=== PATIENT | female | born 1995 | race Two or more races ===

== ENCOUNTER 2018-12-01 15:59 | Emergency (ER) | payer OTHER ==
[2018-12-01 16:14] VITALS: BP 152/89; PULSE 75; TEMP 98.3; BMI 30.7
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
[2018-12-01] MEDS ORDERED: IBUPROFEN 400 MG TABLET (FP) PO ONE ×2 (17:29→17:31)
[2018-12-01] MEDS ORDERED: LIDOCAINE 5% TOPICAL PATCH TP ONE (17:31)
[2018-12-01] MEDS ORDERED: LIDOCAINE 5% TOPICAL PATCH ONE (17:32)
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
[2018-12-01] MEDS ORDERED: LIDOCAINE PATCH REMOVAL MC SCH (22:00)
== END 2018-12-01 17:39 | disposition home or self-care (01) ==
LOC: JERFT 15:59
DX: S13.4XXA Sprain of ligaments of cervical spine, initial encounter (principal); V43.52XA Car driver injured in collision with other type car in traffic accident, initial encounter; Y93.89 Activity, other specified; Y92.410 Unspecified street and highway as the place of occurrence of the external cause; G93.2 Benign intracranial hypertension; F17.210 Nicotine dependence, cigarettes, uncomplicated
CPT/HCPCS: 84703; 99281-25

== ENCOUNTER 2019-12-25 05:57 | Day surgery (SDC) | payer OTHER ==
[2019-12-25] MEDS ORDERED: IRON SUCROSE INJECTION 200 MG in SODIUM CHLORIDE 100 ML IVPB ONE (10:00)
[2019-12-25 14:32] VITALS: TEMP 97.5
[2019-12-25 14:33] VITALS: BP 131/87; PULSE 81
== END 2019-12-25 11:15 | disposition home or self-care (01) ==
LOC: JONCNONCHE 05:57 → J7W 09:34 → JONCNONCHE 11:15
PROVIDERS: ATTEND Internal Medicine Hematology & Oncology
PROC: 3E033GC Introduction of Other Therapeutic Substance into Peripheral Vein, Percutaneous Approach (ICD-10-PCS; principal; 2019-12-25)
DX: D50.9 Iron deficiency anemia, unspecified (principal)
CPT/HCPCS: 96365; J1756

== ENCOUNTER 2020-01-08 07:04 | Day surgery (SDC) | payer OTHER ==
[2020-01-08] MEDS ORDERED: IRON SUCROSE INJECTION 200 MG in SODIUM CHLORIDE 100 ML IVPB ONE (11:00)
[2020-01-08 15:48] VITALS: BP 130/85; PULSE 72; TEMP 98.6
== END 2020-01-08 12:15 | disposition home or self-care (01) ==
LOC: JONCNONCHE 07:04 → J7W 10:37 → JONCNONCHE 12:15
PROVIDERS: ATTEND Nurse Practitioner Family
DX: D50.9 Iron deficiency anemia, unspecified (principal)
CPT/HCPCS: 96365; J1756

== ENCOUNTER 2020-01-21 13:12 | Emergency (ER) | payer OTHER ==
[2020-01-21 13:19] VITALS: BP 140/95; PULSE 92; TEMP 98.3; BMI 30.7
--- NOTE | 2020-01-21 14:14 | PDOC ---
History of Present Illness - General Chief Complaint: Allergic Reaction Stated Complaint: ALLGERIC REACTION Time Seen by Provider: 01/21/20 13:39 History Source: Patient Exam Limitations: No Limitations - History of Present Illness Initial Comments: 01/21/20 14:46 HISTORY OF PRESENT ILLNESS: 24-year-old woman recently diagnosed with lupus and started on Plaquenil who presents emergency department for evaluation of rash to face, arms, hands and feet. Patient was concerned that she has oral pain which started this morning upon waking up. She denies any shortness of breath, difficulty swallowing or audible wheezing. Patient reports she was seen by her primary doctor who started on a Medrol Dosepak and has been given her Benadryl for the rash. Patient had called her primary doctor today to tell her about the pain in her mouth and was referred to come to the emergency department for evaluation of angioedema. Patient reports she self DC'd her Plaquenil after symptoms had started for questionable allergic reaction. No recent travel or sick contacts. PAST MEDICAL HISTORY: Denies past medical history SURGICAL HISTORY: Denies ALLERGIES: No known drug allergies REVIEW OF SYSTEMS General/Constitutional: Denies fever or chills. Denies weakness, weight change. HEENT: See HPI Cardiovascular: Denies chest pain or shortness of breath. Respiratory: Denies cough, wheezing, or hemoptysis. Gastrointestinal: Denies nausea, vomiting, diarrhea or constipation. Denies rectal bleeding. Genitourinary: Denies dysuria, frequency, or change in urination. Musculoskeletal: Denies joint or muscle swelling or pain. Denies neck or back pain. Skin and breasts: See HPI Neurologic: Denies headache, vertigo, loss of consciousness, or loss of sensation. Psychiatric: Denies depression or anxiety. Endocrine: Denies increased thirst. Denies abnormal weight change. Hematologic/Lymphatic: Denies anemia, easy bleeding, or history of blood clots. Allergic/Immunologic: Denies hives or skin allergy. Denies latex allergy. PHYSICAL EXAM General Appearance: Well-appearing, appropriately dressed. No apparent distress, no intoxication. HEENT: EOMI, PERRLA, normal ENT inspection, normal voice, TMs normal, pharynx normal. No conjunctival pallor. No photophobia, scleral icterus. Butterfly rash present. Neck: Supple. Trachea midline. No tenderness, rigidity, carotid bruit, stridor, lymphadenopathy, or thyromegaly. Respiratory/Chest: Lungs CTAB. No shortness of breath, chest tenderness, respiratory distress, accessory muscle use. No crackles, rales, rhonchi, stridor, wheezing, dullness Cardiovascular: RRR. S1, S2. No JVD, murmur, bradycardia, tachycardia. Vascular Pulses: Dorsalis-Pedis (R): 2+, Dorsalis-Pedis (L): 2+ Musculoskeletal/Extremities: Normal inspection. FROM of all extremities, normal capillary refill. Pelvis Stable. No CVA tenderness. No tenderness to extremities, pedal edema, swelling, erythema or deformity. Integumentary: Flat maculopapular rash present to face, bilateral upper extremities, bilateral palms and bilateral plantar surfaces. Rash is blanchable. No bulla or sloughing is noted. No lesions present in the oropharynx. Past History - Past Medical History Allergies/Adverse Reactions: Allergies Allergy/AdvReac Type Severity Reaction Status Date / Time No Known Drug Allergies Allergy Verified 01/21/20 13:18 Home Medications: Ambulatory Orders Furosemide [Lasix -] 40 mg PO DAILY 12/01/18 Methocarbamol [Robaxin -] 500 mg PO HS #7 tablet 12/01/18 Topiramate [Topamax] 50 mg PO DAILY 12/01/18 Fluconazole [Diflucan -] 100 mg PO DAILY #7 tablet 01/21/20 Mometasone Furoate 15 gm TP BID #1 tube 01/21/20 COPD: No Thyroid Disease: Yes Other medical history: lupus, PCOS - Reproductive History (#): 0 Para: 0 - Psycho Social/Smoking Cessation Hx Smoking History: Never smoked Have you smoked in the past 12 months: Yes Number of Cigarettes Smoked Daily: 5 'Breaking Loose' booklet given: 06/15/16 Hx Alcohol Use: No Drug/Substance Use Hx: No Substance Use Type: Marijuana *Physical Exam - Vital Signs Last Vital Signs Temp Pulse Resp BP Pulse Ox 98.3 F 92 H 18 140/95 98 01/21/20 13:15 01/21/20 13:15 01/21/20 13:15 01/21/20 13:15 01/21/20 13:15 Medical Decision Making - Medical Decision Making 01/21/20 14:43 A/P: 24-year-old woman with rash to face, arms, legs, palms and plantar surface of the feet bilaterally Macular papular rash Rash is blanchable No bulla or sloughing noted Inspection of the oropharynx reveals oral candidiasis likely due to recent steroid use Patient contacted her primary doctor earlier today who sent her to the emergency department for evaluation of questionable angioedema. As are no red flags with the patient's rash and currently has no stridor, no shortness of breath, clear lungs I feel it is safe to discharge home. Case has been discussed with Dr. Heaton the patient's primary doctor who is aware of the plan and is in agreement with oral Diflucan and dermatology follow- up. Strict return precautions have been provided to the patient was verbalized understanding of discharge instructions Portions of this note have been documented using voice recognition software. As a result, errors may occur in the manual equipment mechanic process. Effort has been made to correct all grammatical and manual equipment mechanic error, but some may have been missed which may produce sporadic inaccurate manual equipment mechanic or nonsensical phrases. Discharge - Discharge Information Problems reviewed: Yes Clinical Impression/Diagnosis: Hand, foot and mouth disease (HFMD), Oral pharyngeal candidiasis Condition: Fair Disposition: HOME - Admission No - Additional Discharge Information Prescriptions: Fluconazole [Diflucan -] 100 mg PO DAILY #7 tablet Mometasone Furoate 15 gm TP BID #1 tube - Follow up/Referral Referrals: Hui Heaton MD [Primary Care Provider] - Cristal Warren MD [Staff Physician] - Declan Mc [Non Staff, Medical] - - Patient Discharge Instructions Additional Instructions: Coxsackie virus/hand foot and mouth disease is a viral infection and there are no antibiotic's required . We need to treat the symptoms and fevers. Course of illness takes approximately 2-5 days to resolve. Rest, drink lots of fluids: Teas, water, soups, Pedialyte Cold things taste good with a sore throat: Ice pops, ice chips, ice cream which also provide rehydration Humidify room to keep airways moist Avoid contact with others until fevers and cough resolved Lots of handwashing and good hygiene Continue [id number] medications for symptomatic relief Tylenol or Motrin for fever and pain Take Diflucan 100 mg orally every day for the next 7 days. Prescription has been sent to your preferred pharmacy. Followup with private physician in one to 2 days as needed Return to emergency department for worsened symptoms, fevers, dehydration - Post Discharge Activity
[2020-01-21] MEDS ORDERED: FLUCONAZOLE 100 MG TABLET (UD) PO ONE (14:26)
[2020-01-21] MEDS ORDERED: diphenhydrAMINE HCL 25 MG CAPSULE (FP) PO ONE ×2 (14:26→14:30)
[2020-01-21] MEDS ORDERED: FLUCONAZOLE 100 MG TABLET (UD) ONE (14:30)
== END 2020-01-21 14:47 | disposition home or self-care (01) ==
LOC: JERFT 13:12
DX: B08.4 Enteroviral vesicular stomatitis with exanthem (principal); B97.11 Coxsackievirus as the cause of diseases classified elsewhere; B37.0 Candidal stomatitis; M32.9 Systemic lupus erythematosus, unspecified; E28.2 Polycystic ovarian syndrome; E07.9 Disorder of thyroid, unspecified
CPT/HCPCS: 99283-25

== ENCOUNTER 2022-01-11 18:27 | Emergency (ER) | payer BC, OTHER ==
[2022-01-11 18:33] VITALS: TEMP 97; BMI 31.2
[2022-01-11 20:13] LABS: BASO % 0.8 % (0-2.0); HEMATOCRIT 41.5 % (32.4-45.2); HEMOGLOBIN 13.6 GM/dL (10.7-15.3); LYMPH % 19.9 % (8-40); MCH 22.5 pg (25.7-33.7); MCHC 32.8 g/dl (32.0-36.0); MEAN CELL VOLUME 68.6 fl (80-96); MEAN PLT VOLUME 8.6 fl (7.5-11.1); MONO % 4.7 % (3.8-10.2); NEUT % 73.6 % (42.8-82.8); PLATELET COUNT 383 10^3/uL (134-434); RBC 6.05 M/mm3 (3.60-5.2); RDW 16.1 % (11.6-15.6); WHITE BLOOD COUNT 14.4 K/mm3 (4.0-10.0)
[2022-01-11 20:17] LABS: INR 1.09 (0.83-1.09); PROTHROMBIN TIME (PATIENT) 12.5 SEC (9.7-13.0)
[2022-01-11 20:20] LABS: ACTIVATED PTT 39.2 SECONDS (25.2-36.5)
[2022-01-11 20:37] LABS: CALCIUM 9.8 mg/dL (8.5-10.1)
[2022-01-11 20:38] LABS: ALBUMIN 4.7 g/dl (3.4-5.0); BLOOD UREA NITROGEN 15.1 mg/dL (7-18)
[2022-01-11 20:41] LABS: CREATININE 0.7 mg/dL (0.55-1.3)
[2022-01-11 20:43] LABS: BILIRUBIN,TOTAL 0.2 mg/dL (0.2-1); TOT PROT 8.8 g/dl (6.4-8.2)
[2022-01-11] MEDS ORDERED: METOCLOPRAMIDE HCL INJECTION 10 MG/2 ML VIAL IVPUSH ONE (20:44)
[2022-01-11] MEDS ORDERED: ACETAMINOPHEN 500 MG TABLET (FP) PO ONE (20:44)
[2022-01-11 20:46] LABS: N-TERMINAL BNP 9.1 pg/ml (5-125)
[2022-01-11] MEDS ORDERED: METOCLOPRAMIDE HCL INJECTION 10 MG/2 ML VIAL ONE (20:52)
[2022-01-11 21:47] VITALS: BP 137/98; PULSE 91
== END 2022-01-11 21:51 | disposition home or self-care (01) ==
LOC: JER 18:27
DX: R00.2 Palpitations (principal); R20.2 Paresthesia of skin; R07.9 Chest pain, unspecified
CPT/HCPCS: 36415; 71046-TC-FY; 80053; 83880; 84703; 85025; 85379; 85610; 85730; 93005; 93010; 99285-25

== ENCOUNTER 2022-02-06 08:23 | Day surgery (SDC) | payer OTHER ==
[2022-02-06] MEDS ORDERED: IRON SUCROSE INJECTION 200 MG in SODIUM CHLORIDE 100 ML IVPB ONE (10:00)
[2022-02-06 18:55] VITALS: BP 137/95; PULSE 73; TEMP 98.1
== END 2022-02-06 14:00 | disposition home or self-care (01) ==
LOC: JONCNONCHE 08:23
PROVIDERS: ATTEND Internal Medicine Hematology & Oncology
PROC: 3E033GC Introduction of Other Therapeutic Substance into Peripheral Vein, Percutaneous Approach (ICD-10-PCS; principal; 2022-02-06)
DX: D50.9 Iron deficiency anemia, unspecified (principal)
CPT/HCPCS: 96365; J1756

== ENCOUNTER 2022-02-13 06:38 | Day surgery (SDC) | payer OTHER ==
[2022-02-13] MEDS ORDERED: IRON SUCROSE INJECTION 200 MG in SODIUM CHLORIDE 100 ML IVPB ONE (10:00)
[2022-02-13 16:07] VITALS: BP 122/86; PULSE 68; TEMP 98.4
== END 2022-02-13 15:00 | disposition home or self-care (01) ==
LOC: JONCNONCHE 06:38
PROVIDERS: ATTEND Internal Medicine Hematology & Oncology
PROC: 3E033GC Introduction of Other Therapeutic Substance into Peripheral Vein, Percutaneous Approach (ICD-10-PCS; principal; 2022-02-13)
DX: D50.9 Iron deficiency anemia, unspecified (principal)
CPT/HCPCS: 96365; J1756

== ENCOUNTER 2022-02-20 06:44 | Day surgery (SDC) | payer BC, OTHER ==
[2022-02-20] MEDS ORDERED: IRON SUCROSE INJECTION 200 MG in SODIUM CHLORIDE 100 ML IVPB ONE (10:00)
[2022-02-20 17:07] VITALS: TEMP 98.3
[2022-02-20 17:08] VITALS: BP 130/91; PULSE 79
== END 2022-02-20 14:30 | disposition home or self-care (01) ==
LOC: JONCNONCHE 06:44
PROVIDERS: ATTEND Internal Medicine Hematology & Oncology
PROC: 3E033GC Introduction of Other Therapeutic Substance into Peripheral Vein, Percutaneous Approach (ICD-10-PCS; principal; 2022-02-20)
DX: E61.1 Iron deficiency (principal)
CPT/HCPCS: 96365; J1756

== ENCOUNTER 2022-02-27 07:37 | Day surgery (SDC) | payer BC ==
[2022-02-27] MEDS ORDERED: IRON SUCROSE INJECTION 200 MG in SODIUM CHLORIDE 100 ML IVPB ONE (10:00)
[2022-02-27 18:21] VITALS: BP 125/86; PULSE 83; TEMP 98.8
== END 2022-02-27 13:00 | disposition home or self-care (01) ==
LOC: JONCNONCHE 07:37
PROVIDERS: ATTEND Internal Medicine Hematology & Oncology
PROC: 3E033GC Introduction of Other Therapeutic Substance into Peripheral Vein, Percutaneous Approach (ICD-10-PCS; principal; 2022-02-27)
DX: D50.9 Iron deficiency anemia, unspecified (principal)
CPT/HCPCS: 96365; J1756

== ENCOUNTER 2023-01-15 09:45 | Day surgery (SDC) | payer BC, OTHER ==
[2023-01-15] MEDS ORDERED: IRON SUCROSE INJECTION 200 MG in SODIUM CHLORIDE 100 ML IVPB ONE (12:00)
[2023-01-15 18:12] VITALS: TEMP 98
[2023-01-15 18:15] VITALS: BP 131/92; PULSE 81; RESP 16
== END 2023-01-15 12:45 | disposition home or self-care (01) ==
LOC: JONCNONCHE 09:45
PROVIDERS: ATTEND Internal Medicine Hematology & Oncology
PROC: 3E033GC Introduction of Other Therapeutic Substance into Peripheral Vein, Percutaneous Approach (ICD-10-PCS; principal; 2023-01-15)
DX: D50.9 Iron deficiency anemia, unspecified (principal)
CPT/HCPCS: 96365; J1756

== ENCOUNTER 2023-01-22 09:08 | Day surgery (SDC) | payer BC, OTHER ==
[2023-01-22] MEDS ORDERED: IRON SUCROSE INJECTION 200 MG in SODIUM CHLORIDE 100 ML IVPB ONE (10:00)
[2023-01-22 14:17] VITALS: TEMP 98.1
[2023-01-22 14:19] VITALS: BP 129/87; PULSE 75; RESP 16
== END 2023-01-22 10:35 | disposition home or self-care (01) ==
LOC: JONCNONCHE 09:08
PROVIDERS: ATTEND Internal Medicine Hematology & Oncology
PROC: 3E033GC Introduction of Other Therapeutic Substance into Peripheral Vein, Percutaneous Approach (ICD-10-PCS; principal; 2023-01-22)
DX: D50.9 Iron deficiency anemia, unspecified (principal)
CPT/HCPCS: 96365; J1756

== ENCOUNTER 2023-01-29 10:09 | Day surgery (SDC) | payer BC, OTHER ==
[~2023-01-29 10:09] MED LIST: IRON SUCROSE INJECTION 200 MG in SODIUM CHLORIDE 100 ML IVPB ONE
[2023-01-29 14:25] VITALS: BP 138/92; PULSE 77; RESP 19; TEMP 98
== END 2023-01-29 11:15 | disposition home or self-care (01) ==
LOC: JONCNONCHE 10:09
PROVIDERS: ATTEND Internal Medicine Hematology & Oncology
PROC: 3E033GC Introduction of Other Therapeutic Substance into Peripheral Vein, Percutaneous Approach (ICD-10-PCS; principal; 2023-01-29)
DX: D50.9 Iron deficiency anemia, unspecified (principal)
CPT/HCPCS: 96365; J1756

== ENCOUNTER 2023-02-05 09:13 | Day surgery (SDC) | payer BC, OTHER ==
[2023-02-05 15:41] VITALS: BP 146/97; PULSE 77; RESP 20; TEMP 98.4
== END 2023-02-05 10:50 | disposition home or self-care (01) ==
LOC: JONCNONCHE 09:13
PROVIDERS: ATTEND Internal Medicine Hematology & Oncology
PROC: 3E033GC Introduction of Other Therapeutic Substance into Peripheral Vein, Percutaneous Approach (ICD-10-PCS; principal; 2023-02-05)
DX: D50.9 Iron deficiency anemia, unspecified (principal)
CPT/HCPCS: 96365; J1756

== ENCOUNTER 2023-04-12 14:53 | Day surgery (SDC) | payer BC, OTHER ==
[~2023-04-12 14:53] MED LIST changes: +IRON SUCROSE COMPLEX 200 MG in SODIUM CHLORIDE 100 ML IVPB ONE; -IRON SUCROSE INJECTION 200 MG in SODIUM CHLORIDE 100 ML IVPB ONE
[2023-04-12 16:27] VITALS: RESP 18; TEMP 98.2
[2023-04-12 16:31] VITALS: BP 119/78; PULSE 71
== END 2023-04-12 15:50 | disposition home or self-care (01) ==
LOC: JONCNONCHE 14:53 → J7W 14:54 → JONCNONCHE 15:50
PROVIDERS: ATTEND Internal Medicine Hematology & Oncology
PROC: 3E033GC Introduction of Other Therapeutic Substance into Peripheral Vein, Percutaneous Approach (ICD-10-PCS; principal; 2023-04-12)
DX: D50.9 Iron deficiency anemia, unspecified (principal)
CPT/HCPCS: 96365

== ENCOUNTER 2023-04-22 14:56 | Day surgery (SDC) | payer BC, OTHER ==
[2023-04-22 16:31] VITALS: BP 116/80; PULSE 79; RESP 18; TEMP 98.6
== END 2023-04-22 16:10 | disposition home or self-care (01) ==
LOC: JONCNONCHE 14:56 → J7W 14:57 → JONCNONCHE 16:10
PROVIDERS: ATTEND Internal Medicine Hematology & Oncology
PROC: 3E033GC Introduction of Other Therapeutic Substance into Peripheral Vein, Percutaneous Approach (ICD-10-PCS; principal; 2023-04-22)
DX: D50.9 Iron deficiency anemia, unspecified (principal)
CPT/HCPCS: 96365

== ENCOUNTER 2023-04-26 15:32 | Day surgery (SDC) | payer BC, OTHER ==
[2023-04-26 15:43] VITALS: BP 138/84; PULSE 81; RESP 18; TEMP 97.8
== END 2023-04-26 15:43 | disposition home or self-care (01) ==
LOC: J7W 15:32 → JONCNONCHE 15:32
PROVIDERS: ATTEND Internal Medicine Hematology & Oncology
PROC: 3E033GC Introduction of Other Therapeutic Substance into Peripheral Vein, Percutaneous Approach (ICD-10-PCS; principal; 2023-04-26)
DX: D50.9 Iron deficiency anemia, unspecified (principal)
CPT/HCPCS: 96365

== ENCOUNTER 2023-05-03 13:19 | Day surgery (SDC) | payer BC, OTHER ==
[~2023-05-03 13:19] MED LIST changes: -IRON SUCROSE COMPLEX 200 MG in SODIUM CHLORIDE 100 ML IVPB ONE; +IRON SUCROSE INJECTION 200 MG in SODIUM CHLORIDE 100 ML IVPB ONE
[2023-05-03 16:46] VITALS: RESP 18; TEMP 98.3
[2023-05-03 16:47] VITALS: BP 132/89; PULSE 76
== END 2023-05-03 15:00 | disposition home or self-care (01) ==
LOC: JONCNONCHE 13:19
PROVIDERS: ATTEND Internal Medicine Hematology & Oncology
PROC: 3E033GC Introduction of Other Therapeutic Substance into Peripheral Vein, Percutaneous Approach (ICD-10-PCS; principal; 2023-05-03)
DX: D50.9 Iron deficiency anemia, unspecified (principal)
CPT/HCPCS: 96365; J1756